=== PATIENT | male | born 1965 | race African-American/Black ===

== ENCOUNTER 2018-06-11 14:04 | Inpatient (IN) | payer OTHER ==
[2018-06-11 14:26] VITALS: BMI 32.7
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
[2018-06-11] MEDS ORDERED: P-EPHED 60MG/TRIPROLIDI 2.5MG TABLET PO PRN (21:14)
[2018-06-11] MEDS ORDERED: IBUPROFEN 400 MG TABLET (FP) PO PRN (21:14)
[2018-06-11] MEDS ORDERED: LOPERAMIDE HCL 2 MG CAPSULE PO PRN (21:14)
[2018-06-11] MEDS ORDERED: MAGNESIUM CITRATE 300 ML BOTTLE PO PRN (21:14)
[2018-06-11] MEDS ORDERED: chlordiazePOXIDE HCL 25 MG CAPSULE PO PRN (21:14)
[2018-06-11] MEDS ORDERED: NICOTINE POLACRILEX 2 MG GUM BC PRN (21:14)
[2018-06-11] MEDS ORDERED: MENTHOL/PHENOL 1 EACH UD MM PRN (21:14)
[2018-06-11] MEDS ORDERED: MAGNESIUM HYDROX 2400MG/30ML ORAL SUSPENSION 30 ML CUP PO PRN (21:14)
[2018-06-11] MEDS ORDERED: ACETAMINOPHEN 325 MG TABLET (FP) PO PRN (21:14)
[2018-06-11] MEDS ORDERED: MAG HYDROX/AL HYDROX/SIMETH 30 ML UNIT-DOSE CUP PO PRN (21:14)
[2018-06-11] MEDS ORDERED: MELATONIN 5 MG TABLETS PO PRN (22:00)
[2018-06-11] MEDS: THIAMINE HCL 100 MG TABLET (FP) PO SCH (22:05)
[2018-06-11] MEDS: chlordiazePOXIDE HCL 25 MG CAPSULE PO SCH (22:05)
[2018-06-11 23:30] LABS: URINE APPEARANCE CLOUDY; URINE BILIRUBIN NEGATIVE (<2.0 mg/dL); URINE COLOR YELLOW; URINE GLUCOSE (UA) NEGATIVE (NEGATIVE); URINE KETONE TRACE (NEGATIVE); URINE LEUK ESTERASE NEGATIVE (NEGATIVE); URINE NITRITE NEGATIVE (NEGATIVE); URINE PROTEIN NEGATIVE (NEGATIVE); URINE UROBILINOGEN NEGATIVE mg/dL (0.2-1.0)
[2018-06-12] MEDS: chlordiazePOXIDE HCL 25 MG CAPSULE PO SCH ×4 (05:32→22:22)
[2018-06-12 10:00] LABS: HEMATOCRIT 42.8 % (35.4-49); HEMOGLOBIN 14.3 GM/dL (11.7-16.9); MCH 31.1 pg (25.7-33.7); MCHC 33.4 g/dl (32.0-35.9); MEAN CELL VOLUME 93.2 fl (80-96); MEAN PLT VOLUME 8.5 fl (7.5-11.1); PLATELET COUNT 254 K/MM3 (134-434); RBC 4.59 M/mm3 (4.00-5.60); RDW 14.6 % (11.9-15.9)
[2018-06-12] MEDS: PRENATAL VITAMINS W/ FOLIC ACID TABLET (FP) PO SCH (10:04)
[2018-06-12] MEDS: NICOTINE 14 MG/24 HOURS TOPICAL PATCH TD SCH (10:05)
[2018-06-12 10:12] LABS: ALBUMIN 3.4 g/dl (3.4-5.0); ALK PHOS 93 U/L (45-117); ANION GAP 7 MMOL/L (8-16); BILIRUBIN,TOTAL 0.4 mg/dL (0.2-1); BLOOD UREA NITROGEN 24 mg/dL (7-18); CALCIUM 8.4 mg/dL (8.5-10.1); CHLORIDE 111 mmol/L (98-107); CO2 28 mmol/L (21-32); CREATININE 1.3 mg/dL (0.55-1.3); GLUCOSE,RANDOM 104 mg/dL (74-106); POTASSIUM 4.5 mmol/L (3.5-5.1); SGOT/AST 45 U/L (15-37); SGPT/ALT 44 U/L (13-61); SODIUM 145 mmol/L (136-145); TOT PROT 6.4 g/dl (6.4-8.2)
--- NOTE | 2018-06-12 14:58 | PN ---
[facility] CIWA - CIWA Score Nausea/Vomitin-No Nausea/No Vomiting Muscle Tremors: 2 Anxiety: 1-Mildly Anxious Agitation: 1-Slight > Activity Paroxysmal Sweats: 2 Orientation: 0-Oriented Tacttile Disturbances: 2-Mild Itch/Numbness/Burn Auditory Disturbances: 0-None Visual Disturbances: 1-Very Mild Sensitivity Headache: 0-None Present CIWA-Ar Total Score: 9 S Progress Note (SOAP) Subjective: Sweating, Diarrhea, Tremors. Objective: PATIENT A & O X 3, OBSERVED AMBULATING ON UNIT. IN NO ACUTE DISTRESS. 06/12/18 14:54 Vital Signs Temperature 97.9 F 06/12/18 13:50 Pulse Rate 99 H 06/12/18 13:50 Respiratory Rate 18 06/12/18 13:50 Blood Pressure 98/63 06/12/18 13:50 O2 Sat by Pulse Oximetry (%) Laboratory Tests 06/11/18 06/12/18 06/12/18 21:30 07:15 07:15 WBC 5.0 RBC 4.59 Hgb 14.3 Hct 42.8 MCV 93.2 MCH 31.1 MCHC 33.4 RDW 14.6 D Plt Count 254 MPV 8.5 Sodium 145 Potassium 4.5 Chloride 111 H Carbon Dioxide 28 Anion Gap 7 L BUN 24 H Creatinine 1.3 Creat Clearance w eGFR 57.31 Random Glucose 104 Calcium 8.4 L Total Bilirubin 0.4 AST 45 H ALT 44 Alkaline Phosphatase 93 Total Protein 6.4 Albumin 3.4 Urine Color Yellow Urine Appearance Cloudy Urine pH 5.0 D Ur Specific [place] 1.020 Urine Protein Negative Urine Glucose (UA) Negative Urine Ketones Trace H Urine Blood Negative Urine Nitrite Negative Urine Bilirubin Negative Urine Urobilinogen Negative Ur Leukocyte Esterase Negative RPR Titer 06/12/18 07:15 WBC RBC Hgb Hct MCV MCH MCHC RDW Plt Count MPV Sodium Potassium Chloride Carbon Dioxide Anion Gap BUN Creatinine Creat Clearance w eGFR Random Glucose Calcium Total Bilirubin AST ALT Alkaline Phosphatase Total Protein Albumin Urine Color Urine Appearance Urine pH Ur Specific [place] Urine Protein Urine Glucose (UA) Urine Ketones Urine Blood Urine Nitrite Urine Bilirubin Urine Urobilinogen Ur Leukocyte Esterase RPR Titer Nonreactive LABS NOTED. Assessment: 06/12/18 14:55 WITHDRAWAL SYMPTOMS. AZOTEMIA. 06/12/18 14:57 Plan: CONTINUE DETOX. D/C IBUPROFEN AND MAGNESIUM-CONTAINING MEDS. FOR ABNORMAL ADMISSION RENAL LAB VALUES. INCREASE DAILY PO FLUID INTAKE. PRN IMMODIUM FOR DIARRHEA. PATIENT REPORTS THAT HE IS TOLERATING CURRENT WITHDRAWAL / DETOX SYMPTOMS RELATIVELY WELL THUS FAR. AT PATIENT'S REQUEST, CURRENT DETOX MEDICATION REGIMEN MODIFIED SO THAT PATIENT MAY BE DISCHARGED ON 06/14/2018 (PATIENT IS SCHEDULED TO RETURN TO WORK ON THAT DAY).
[2018-06-12] MEDS: THIAMINE HCL 100 MG TABLET (FP) PO SCH (22:21)
[2018-06-12] MEDS ORDERED: chlordiazePOXIDE HCL 25 MG CAPSULE PO SCH (23:00)
[2018-06-13] MEDS: chlordiazePOXIDE 5 MG CAPSULE PO SCH ×2 (05:30→10:12)
[2018-06-13] MEDS: PRENATAL VITAMINS W/ FOLIC ACID TABLET (FP) PO SCH (10:12)
[2018-06-13] MEDS: NICOTINE 14 MG/24 HOURS TOPICAL PATCH TD SCH (10:13)
[2018-06-13] MEDS ORDERED: BISACODYL 5 MG TABLET.DR (FP) PO ONE (11:30)
--- NOTE | 2018-06-13 16:13 | PN ---
S CIWA - CIWA Score Nausea/Vomitin Muscle Tremors: 3 Anxiety: 3 Agitation: 3 Paroxysmal Sweats: 3 Orientation: 0-Oriented Tacttile Disturbances: 0-None Auditory Disturbances: 0-None Visual Disturbances: 0-None Headache: 0-None Present CIWA-Ar Total Score: 14 BHS Progress Note (SOAP) Subjective: Sweating, constipated x 2 days Objective: 06/13/18 16:11 Last Vital Signs Temp Pulse Resp BP Pulse Ox 98.9 F 80 18 132/86 06/13/18 14:28 06/13/18 14:28 06/13/18 14:28 06/13/18 14:28 Laboratory Tests 06/11/18 06/12/18 06/12/18 21:30 07:15 07:15 WBC 5.0 RBC 4.59 Hgb 14.3 Hct 42.8 MCV 93.2 MCH 31.1 MCHC 33.4 RDW 14.6 D Plt Count 254 MPV 8.5 Sodium 145 Potassium 4.5 Chloride 111 H Carbon Dioxide 28 Anion Gap 7 L BUN 24 H Creatinine 1.3 Creat Clearance w eGFR 57.31 Random Glucose 104 Calcium 8.4 L Total Bilirubin 0.4 AST 45 H ALT 44 Alkaline Phosphatase 93 Total Protein 6.4 Albumin 3.4 Urine Color Yellow Urine Appearance Cloudy Urine pH 5.0 D Ur Specific [place] 1.020 Urine Protein Negative Urine Glucose (UA) Negative Urine Ketones Trace H Urine Blood Negative Urine Nitrite Negative Urine Bilirubin Negative Urine Urobilinogen Negative Ur Leukocyte Esterase Negative RPR Titer 06/12/18 07:15 WBC RBC Hgb Hct MCV MCH MCHC RDW Plt Count MPV Sodium Potassium Chloride Carbon Dioxide Anion Gap BUN Creatinine Creat Clearance w eGFR Random Glucose Calcium Total Bilirubin AST ALT Alkaline Phosphatase Total Protein Albumin Urine Color Urine Appearance Urine pH Ur Specific [place] Urine Protein Urine Glucose (UA) Urine Ketones Urine Blood Urine Nitrite Urine Bilirubin Urine Urobilinogen Ur Leukocyte Esterase RPR Titer Nonreactive Labs reviewed: prerenal azotemia noted Assessment: 06/13/18 16:11 Withdrawal symptoms Prerenal azotemia noted, c/o constipation Plan: Continue detox Prerenal azotemia: encouraged PO water intake Acute constipation: dulcolax 10mg PO x 1 dose, encouraged to drink adequate amount of water for hydration
[2018-06-13] MEDS: chlordiazePOXIDE HCL 10 MG CAPSULE PO SCH ×2 (16:45→22:07)
--- NOTE | 2018-06-13 19:40 | EKG ---
Test Reason : Blood Pressure : / mmHG Vent. Rate : 074 BPM Atrial Rate : 074 BPM P-R Int : 184 ms QRS Dur : 080 ms QT Int : 404 ms P-R-T Axes : 073 058 044 degrees QTc Int : 448 ms NORMAL SINUS RHYTHM SEPTAL INFARCT , AGE UNDETERMINED ABNORMAL ECG NO PREVIOUS ECGS AVAILABLE Confirmed by YOLI GARNICA, KAILA ([id number]) on 06/13/2018 7:40:26 PM Referred By: Confirmed By:KAILA KENT MD
[2018-06-13] MEDS: THIAMINE HCL 100 MG TABLET (FP) PO SCH (22:07)
[2018-06-13] MEDS ORDERED: chlordiazePOXIDE 5 MG CAPSULE PO SCH (23:00)
[2018-06-14 09:13] VITALS: BP 121/77; PULSE 68; TEMP 96.8
[2018-06-14] MEDS ORDERED: amLODIPine BESYLATE 5 MG TABLET (FP) PO SCH (10:00)
--- NOTE | 2018-06-14 12:54 | DS ---
[facility] Detox Discharge Summary Admission Date: 06/11/18 Discharge Date: 06/14/18 - History Present History: Alcohol Dependence Additional Comments: 53 years old male admitted on 06/11/18 for alcohol withdrawal stabilization reported feeling better manageable alcohol withdrawal sx preferred to go home today and prepare for work on 06/15/18 patient is alert denies suicidal ideation informed wether condition stated that he has coat in property - Physical Exam Results Vital Signs: Vital Signs Temperature 96.8 F L 06/14/18 09:12 Pulse Rate 68 06/14/18 09:12 Respiratory Rate 18 06/14/18 09:12 Blood Pressure 121/77 06/14/18 09:12 O2 Sat by Pulse Oximetry (%) Pertinent Admission Physical Exam Findings: alcohol withdrawal sx Laboratory Last Values WBC 5.0 K/mm3 (4.0-10.0) 06/12/18 07:15 RBC 4.59 M/mm3 (4.00-5.60) 06/12/18 07:15 Hgb 14.3 GM/dL (11.7-16.9) 06/12/18 07:15 Hct 42.8 % (35.4-49) 06/12/18 07:15 MCV 93.2 fl (80-96) 06/12/18 07:15 MCH 31.1 pg (25.7-33.7) 06/12/18 07:15 MCHC 33.4 g/dl (32.0-35.9) 06/12/18 07:15 RDW 14.6 % (11.9-15.9) D 06/12/18 07:15 Plt Count 254 K/MM3 (134-434) 06/12/18 07:15 MPV 8.5 fl (7.5-11.1) 06/12/18 07:15 Sodium 145 mmol/L (136-145) 06/12/18 07:15 Potassium 4.5 mmol/L (3.5-5.1) 06/12/18 07:15 Chloride 111 mmol/L (98-107) H 06/12/18 07:15 Carbon Dioxide 28 mmol/L (21-32) 06/12/18 07:15 Anion Gap 7 MMOL/L (8-16) L 06/12/18 07:15 BUN 24 mg/dL (7-18) H 06/12/18 07:15 Creatinine 1.3 mg/dL (0.55-1.3) 06/12/18 07:15 Creat Clearance w eGFR 57.31 (>60) 06/12/18 07:15 Random Glucose 104 mg/dL (74-106) 06/12/18 07:15 Calcium 8.4 mg/dL (8.5-10.1) L 06/12/18 07:15 Total Bilirubin 0.4 mg/dL (0.2-1) 06/12/18 07:15 AST 45 U/L (15-37) H 06/12/18 07:15 ALT 44 U/L (13-61) 06/12/18 07:15 Alkaline Phosphatase 93 U/L (45-117) 06/12/18 07:15 Total Protein 6.4 g/dl (6.4-8.2) 06/12/18 07:15 Albumin 3.4 g/dl (3.4-5.0) 06/12/18 07:15 Urine Color Yellow 06/11/18 21:30 Urine Appearance Cloudy 06/11/18 21:30 Urine pH 5.0 (5.0-8.0) D 06/11/18 21:30 Ur Specific [place] 1.020 (1.010-1.035) 06/11/18 21:30 Urine Protein Negative (NEGATIVE) 06/11/18 21:30 Urine Glucose (UA) Negative (NEGATIVE) 06/11/18 21:30 Urine Ketones Trace (NEGATIVE) H 06/11/18 21:30 Urine Blood Negative (NEGATIVE) 06/11/18 21:30 Urine Nitrite Negative (NEGATIVE) 06/11/18 21:30 Urine Bilirubin Negative (<2.0 mg/dL) 06/11/18 21:30 Urine Urobilinogen Negative mg/dL (0.2-1.0) 06/11/18 21:30 Ur Leukocyte Esterase Negative (NEGATIVE) 06/11/18 21:30 RPR Titer Nonreactive (NONREACTIVE) 06/12/18 07:15 lab noted - Treatment Hospital Course: Detox Protocol Followed, Detoxed Safely, Responded well, Discharged Condition Good, Rehab Referral Accepted Patient has Accepted a Rehab Referral to: as per counselor arrangement - Medication Discharge Medications: Ambulatory Orders Cyclobenzaprine HCl 5 mg PO DAILY 06/11/18 Diclofenac Sodium [Voltaren -] 100 mg PO DAILY 06/11/18 Amlodipine Besylate [Norvasc -] 5 mg PO DAILY #14 tablet 06/14/18 Amlodipine Besylate [Norvasc -] 5 mg PO DAILY #14 tablet 06/14/18 - Diagnosis (1) Alcohol dependence with uncomplicated withdrawal Current Visit: Yes Status: Acute (2) HTN (hypertension), benign Current Visit: Yes Status: Chronic (3) History of positive PPD, untreated Current Visit: Yes Status: Suspected (4) Nicotine dependence Current Visit: Yes Status: Acute Qualifiers: Nicotine product type: cigarettes Substance use status: in withdrawal Qualified Code(s): F17.213 - Nicotine dependence, cigarettes, with withdrawal - AMA Did Patient Leave Against Medical Advice: No
[2018-06-14] MEDS ORDERED: chlordiazePOXIDE HCL 10 MG CAPSULE PO SCH (23:00)
== END 2018-06-14 09:30 | disposition home or self-care (01) | DRG 774 ==
LOC: YASAS 14:04 → Y3N 19:13
PROVIDERS: ADMIT Neuromusculoskeletal Medicine & OMM; ATTEND Neuromusculoskeletal Medicine & OMM
PROC: HZ2ZZZZ Detoxification Services for Substance Abuse Treatment (ICD-10-PCS; principal; 2018-06-11)
DX: F10.230 Alcohol dependence with withdrawal, uncomplicated (principal); F14.20 Cocaine dependence, uncomplicated; F17.213 Nicotine dependence, cigarettes, with withdrawal; I10 Essential (primary) hypertension; R76.11 Nonspecific reaction to tuberculin skin test without active tuberculosis; R79.89 Other specified abnormal findings of blood chemistry; R94.31 Abnormal electrocardiogram [ECG] [EKG]; K59.01 Slow transit constipation; H55.00 Unspecified nystagmus
CPT/HCPCS: 36415; 80053; 81003; 85027; 86593; 93005; 93010